=== PATIENT | female | born 1970 | race Hispanic/Latino ===

== ENCOUNTER 2023-05-12 13:53 | Inpatient (IN) | payer SELFPAY ==
[2023-05-12] MEDS ORDERED: Nitroglycerin 50 MG/250 ML BOT 0 ML ONE (14:15)
[2023-05-12] MEDS ORDERED: Nitroglycerin 0.4 MG TAB (25 Tab Bottle) ONE (14:19)
[2023-05-12 14:24] LABS: #Basophils 0.1 thou/uL (0.0-0.2); #Eosinphils 0.3 thou/uL (0.0-0.7); #Monocytes 0.6 thou/uL (0.11-0.59); #Neutrophils 6.5 thou/uL (1.40-6.50); %Basophils 0.5 % (0.0-1.0); %Eosinophils 2.7 % (0.0-10.0); %Lymphocytes 25.7 % (21.0-51.0); %Monocytes 6.3 % (0.0-10.0); %Neutrophils 64.3 % (42.0-75.0); Hemoglobin 12.5 g/dL (12.0-16.0); Mean Corpuscular HGB CONC 30.5 g/dL (32.0-36.0); Mean Corpuscular Hemoglobin 25.3 pg (27.0-31.0); Mean Platelet Volume 10.9 fL (7.4-10.4); Platelet Count 213 10x3/uL (130-400); RBC Distribution Width 14.6 % (11.5-14.5); Red Blood Cell (RBC) Count 4.94 mill/uL (4.20-5.40); White Blood Cell (WBC) Count 10.1 10x3/uL (4.8-10.8)
[2023-05-12] MEDS ORDERED: Aspirin Chewable 81 MG TAB ONE (14:29)
[2023-05-12 14:43] LABS: ALT (SGPT) 23 U/L (8-55); AST (SGOT) 22 U/L (5-34); Albumin 3.9 g/dL (3.5-5.0); Alkaline Phosphatase 70 U/L (40-110); Anion Gap 13 mmol/L (10-20); BUN (Urea Nitrogen) 14 mg/dL (9.8-20.1); Bilirubin, Total 0.2 mg/dL (0.2-1.2); Calc. Creatinine Clearance 0 mL/min (70-130); Calcium 9.1 mg/dL (7.8-10.44); Carbon Dioxide 26 mmol/L (22-29); Chloride 102 mmol/L (98-107); Estimated GFR 93; Globulin 4.1 g/dL (2.4-3.5); Glucose 100 mg/dL (70-105); Lipase 22 U/L (8-78); Potassium 4.2 mmol/L (3.5-5.1); Sodium 137 mmol/L (136-145)
[2023-05-12 14:47] LABS: Troponin I Less than 0.010 ng/mL (< 0.028)
[2023-05-12] MEDS ORDERED: Acetaminophen 650 MG Suppository PR PRN (15:35)
[2023-05-12] MEDS ORDERED: Guaifenesin DM 100-10/5 ML UDCUP PO PRN (15:35)
[2023-05-12] MEDS ORDERED: Nitroglycerin 0.4 MG TAB (25 Tab Bottle) SL PRN (15:35)
[2023-05-12] MEDS ORDERED: Ondansetron ODT 4 MG TAB PO PRN (15:35)
[2023-05-12] MEDS ORDERED: Ondansetron PF 4 MG/2 ML Vial IVP PRN (15:35)
[2023-05-12] MEDS ORDERED: Acetaminophen 325 MG TAB PO PRN (15:35)
[2023-05-12 16:34] VITALS: BMI 49.6
[2023-05-12 18:48] LABS: Troponin I Less than 0.010 ng/mL (< 0.028)
[2023-05-12 21:40] LABS: Troponin I Less than 0.010 ng/mL (< 0.028)
[2023-05-12] MEDS: Famotidine 20 MG TAB PO SCH (23:27)
[2023-05-13 06:06] LABS: #Eosinphils 0.3 thou/uL (0.0-0.7); #Monocytes 0.7 thou/uL (0.11-0.59); #Neutrophils 6.7 thou/uL (1.40-6.50); %Basophils 0.3 % (0.0-1.0); %Eosinophils 2.5 % (0.0-10.0); %Lymphocytes 23.3 % (21.0-51.0); %Neutrophils 66.4 % (42.0-75.0); Hematocrit 38.9 % (36.0-47.0); Hemoglobin 12.1 g/dL (12.0-16.0); Mean Corpuscular HGB CONC 31.1 g/dL (32.0-36.0); Mean Corpuscular Hemoglobin 25.6 pg (27.0-31.0); Mean Corpuscular Volume 82.2 fl (78.0-98.0); Mean Platelet Volume 11.6 fL (7.4-10.4); Platelet Count 185 10x3/uL (130-400); RBC Distribution Width 14.6 % (11.5-14.5); Red Blood Cell (RBC) Count 4.73 mill/uL (4.20-5.40); White Blood Cell (WBC) Count 10.2 10x3/uL (4.8-10.8)
[2023-05-13 06:27] LABS: Anion Gap 15 mmol/L (10-20); BUN (Urea Nitrogen) 11 mg/dL (9.8-20.1); Calc. Creatinine Clearance 203 mL/min (70-130); Calcium 8.8 mg/dL (7.8-10.44); Carbon Dioxide 24 mmol/L (22-29); Cardiac Risk 3.7 (Less than 4.5); Chloride 103 mmol/L (98-107); Cholesterol 129 mg/dl (< 200 Desired); Estimated GFR 106; Glucose 88 mg/dL (70-105); HDL Cholesterol 35 mg/dL (>60 Neg Risk); LDL Cholesterol, Calculated 73 mg/dL; Sodium 138 mmol/L (136-145); Triglycerides 106 mg/dL (Less than 150)
[2023-05-13] MEDS: NIFEdipine XL 60 MG ER.TAB PO SCH (09:06)
[2023-05-13] MEDS: Aspirin Chewable 81 MG TAB PO SCH (09:07)
[2023-05-13] MEDS ORDERED: Adenosine 90 mg (30 mL) VIAL ONE (11:32)
[2023-05-13] MEDS: Atorvastatin Calcium 40 MG TAB PO SCH (19:46)
[2023-05-14 05:47] LABS: Hemoglobin A1c 5.8 % (4.0-6.0)
[2023-05-14] MEDS: NIFEdipine XL 30 MG ER.TAB PO SCH (10:18)
[2023-05-14 12:18] VITALS: BP 173/80; TEMP 97.5
== END 2023-05-14 13:29 | disposition home or self-care (01) | DRG 313 ==
LOC: ERS 13:53 → ERHOLD 15:11 → 2SW 22:50 → OBSVTOIN 05-13 15:12
PROVIDERS: ADMIT Emergency Medicine; ATTEND Internal Medicine
DX: R07.9 Chest pain, unspecified (principal); Z68.42 Body mass index [BMI] 45.0-49.9, adult; E66.01 Morbid (severe) obesity due to excess calories; R03.0 Elevated blood-pressure reading, without diagnosis of hypertension; Z88.0 Allergy status to penicillin; Z79.899 Other long term (current) drug therapy; Z98.891 History of uterine scar from previous surgery; Z82.49 Family history of ischemic heart disease and other diseases of the circulatory system; Z71.84 Encounter for health counseling related to travel
CPT/HCPCS: 36415; 71045; 78452; 80048; 80053; 80061; 83036; 83690; 83880; 84484; 85025; 93005; 93017; 94760; A9502; G0378; J0153

== ENCOUNTER 2024-11-19 20:03 | Emergency (ER) | payer SELFPAY ==
[2024-11-19] MEDS ORDERED: Ketorolac Tromethamine 30 MG (1 mL) VIAL ONE (23:56)
== END 2024-11-20 00:25 | disposition home or self-care (01) ==
LOC: ERS 20:03
DX: R20.2 Paresthesia of skin (principal)
CPT/HCPCS: 96372; 99283; J1885